=== PATIENT | male | born 1985 | race African-American/Black ===

== ENCOUNTER 2018-07-24 07:54 | Emergency (ER) | payer MEDICAID ==
[~2018-07-24] VITALS: Ht 175.3 cm; Wt 86.2 kg
[2018-07-24] MEDS ORDERED: PROMETHAZINE HCL 25 MG/ML 1ML IV ONE (08:30)
[2018-07-24] MEDS ORDERED: MEPERIDINE HCL (25 MG/ML) 1ML VIAL IV ONE (08:30)
[2018-07-24] MEDS ORDERED: diphenhdrAMINE HCL 50 MG/1 ML VL IV ONE (08:30)
[2018-07-24 08:35] VITALS: BP 133/78
[2018-07-24] MEDS ORDERED: ONDANSETRON HCL 4 MG/2 ML VIAL IV ONE (09:00)
== END 2018-07-24 10:00 | disposition home or self-care (01) ==
LOC: ER 07:54 → EDBD 07:54 → ER 09:48
DX: M54.42 Lumbago with sciatica, left side (principal); M54.41 Lumbago with sciatica, right side; F32.9 Major depressive disorder, single episode, unspecified; F20.9 Schizophrenia, unspecified; X50.1XXA Overexertion from prolonged static or awkward postures, initial encounter; Y93.89 Activity, other specified; Y92.89 Other specified places as the place of occurrence of the external cause; Y99.8 Other external cause status
CPT/HCPCS: 72100; 96374; 96375; 99284; J2175; J2405

== ENCOUNTER 2021-08-17 12:47 | Emergency (ER) | payer MEDICAID ==
[~2021-08-17] VITALS: Ht 182.9 cm; Wt 89.8 kg
[2021-08-17 12:49] VITALS: BP 109/84
== END 2021-08-17 15:22 | disposition left against medical advice (07) ==
LOC: EDBD 12:47 → ER 12:48
DX: M25.571 Pain in right ankle and joints of right foot (principal); R22.41 Localized swelling, mass and lump, right lower limb; Z53.21 Procedure and treatment not carried out due to patient leaving prior to being seen by health care provider